=== PATIENT | female | born 1945 | race Asian ===

== ENCOUNTER 2022-06-22 20:05 | Inpatient (IN) | payer MEDICARE, BC ==
[~2022-06-22] VITALS: Ht 152.4 cm; Wt 45.4 kg
[2022-06-22] MEDS ORDERED: MORPHINE SULFATE 4 MG/ML CPJ (NOT FOR IM USE) IV STA (21:02)
[2022-06-22] MEDS ORDERED: ONDANSETRON HCL 4MG/2ML INJ IV STA (21:02)
[2022-06-22] MEDS ORDERED: SODIUM CHLORIDE 0.9% 1,000 ML IV ONE (21:15)
[2022-06-22 22:12] LABS: CHLORIDE 107 mEq/L (98-107)
[2022-06-22 22:15] LABS: BASOPHILS % 0.3 % (0.0-2.0); EOSINOPHILS % 0.8 % (0.0-5.0); HEMATOCRIT. 43.9 % (36.0-48.0); HEMOGLOBIN. 14.5 g/dL (12.0-16.0); LYMPHOCYTES % 20.7 % (20.0-50.0); MEAN CORPUSCULAR HEMOGLOBIN 29.5 pg (28.0-32.0); MEAN CORPUSCULAR VOLUME 89.1 fL (81.0-99.0); MEAN PLATELET VOLUME 7.7 fl (7.4-10.4); MONOCYTES % 5.7 % (2.0-8.0); NEUTROPHILS % 72.5 % (40.0-76.0); PLATELET 222 x1000/uL (130-400); RED BLOOD CELL COUNT 4.93 mill/uL (4.2-5.4); RED CELL DISTRIBUTION WIDTH 13.3 % (11.6-14.6)
[2022-06-23] MEDS ORDERED: MORPHINE SULFATE 4 MG/ML CPJ (NOT FOR IM USE) IV ONE (01:00)
[2022-06-23] MEDS ORDERED: NALOXONE HCL 0.4MG/ML VIAL IV PRN (03:00)
[2022-06-23] MEDS ORDERED: ONDANSETRON HCL 4MG/2ML INJ IV PRN (03:00)
[2022-06-23] MEDS: MORPHINE SULFATE 2 MG/ML CPJ (NOT FOR IM USE) IV PRN ×4 (03:26→16:49)
[2022-06-23] MEDS: HYDROCODONE/ACETAMINOPHEN 5/325MG TABLET PO PRN ×2 (12:01→19:58)
[2022-06-23 15:23] VITALS: BP 121/61
[2022-06-23 16:00] VITALS: BP 131/62
[2022-06-23 18:00] VITALS: BP 126/60
[2022-06-23 19:57] VITALS: BP 130/54
[2022-06-23 22:00] VITALS: BP 105/55
[2022-06-24] VITALS (8 sets, daily range): BP systolic 109–155; BP diastolic 52–76
[2022-06-24] MEDS: HYDROCODONE/ACETAMINOPHEN 5/325MG TABLET PO PRN ×2 (04:32→21:42)
[2022-06-24] MEDS: MORPHINE SULFATE 2 MG/ML CPJ (NOT FOR IM USE) IV PRN ×2 (12:39→21:34)
[2022-06-25] VITALS (7 sets, daily range): BP systolic 123–154; BP diastolic 68–84
[2022-06-25] MEDS: HYDROCODONE/ACETAMINOPHEN 5/325MG TABLET PO PRN ×3 (05:51→18:16)
[2022-06-25] MEDS ORDERED: DOCUSATE SODIUM 250MG CAPSULE PO PRN (11:30)
[2022-06-25] MEDS ORDERED: HYDR-4001 MT (12:28)
[2022-06-25] MEDS ORDERED: DOCU250C14 MT (12:28)
== END 2022-06-25 21:00 | disposition home or self-care (01) | DRG 185 ==
LOC: ER 20:05 → 5EST 23:54
PROVIDERS: ADMIT Internal Medicine; ATTEND Internal Medicine
DX: S22.42XA Multiple fractures of ribs, left side, initial encounter for closed fracture (principal); M81.0 Age-related osteoporosis without current pathological fracture; Z20.822 Contact with and (suspected) exposure to COVID-19; E78.00 Pure hypercholesterolemia, unspecified; W18.39XA Other fall on same level, initial encounter; Y93.89 Activity, other specified; Y92.098 Other place in other non-institutional residence as the place of occurrence of the external cause; Y99.8 Other external cause status; I25.10 Atherosclerotic heart disease of native coronary artery without angina pectoris; Z95.1 Presence of aortocoronary bypass graft
CPT/HCPCS: 36415; 71045; 71250; 80053; 84484; 85025; 87426; 93005; 97162; 97535; 99291; C9803; J2270; J2405; J7030